=== PATIENT | female | born 2000 | race Caucasian/White ===

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

== ENCOUNTER 2018-04-14 06:35 | Emergency (ER) | payer SELFPAY ==
[~2018-04-14] VITALS: Ht 162.6 cm; Wt 59.0 kg
[2018-04-14 07:04] VITALS: BP 100/45
[2018-04-14] MEDS ORDERED: HYDROcodone/APAP 5/325MG 1 TAB TABLET ONE (07:08)
[2018-04-14] MEDS ORDERED: HYDROcodone/APAP 5/325MG 1 TAB TABLET PO ONE (07:15)
[2018-04-14] MEDS ORDERED: AMOXICILLIN/K CLAV 875/125MG TABLET. PO ONE (07:15)
[2018-04-14] MEDS ORDERED: MORPHINE SULFATE 2 MG/ML DISP.SYRIN. ONE (07:24)
[2018-04-14] MEDS ORDERED: HYDR-3165 PO (07:27)
[2018-04-14] MEDS ORDERED: AMOX1TAB61 PO (07:27)
--- NOTE | 2018-04-14 07:27 | PHYS DOC ---
Past History Past Medical History: Anxiety Past Surgical History: No Surgical History Smoking: Cigarettes Alcohol Use: Occasionally Drug Use: None Adult General Chief Complaint Chief Complaint: EARACHE/EAR PAIN HPI HPI 18-year-old female presents with bilateral ear pain. The patient started having severe pain about 3 hours prior to arrival. The patient was standing outside for a couple hours in the extreme cold earlier this morning. The pain is a sharp pressure and she has not had pain like this before. The pain as an 8 out of 10 and the patient is crying. She has no history of ear infections as an adult. She had no significant history of ear infections as a child. She denies trauma to the ears. She has a mild sore throat. She denies fever or chills. She has no other complaints. Review of Systems Review of Systems Constitutional: Denies fever or chills [] Eyes: Denies change in visual acuity, redness, or eye pain [] HENT: Ear pain, sore throat[] Respiratory: Denies cough or shortness of breath [] Cardiovascular: No additional information not addressed in HPI [] GI: Denies abdominal pain, nausea, vomiting, bloody stools or diarrhea [] : Denies dysuria or hematuria [] Musculoskeletal: Denies back pain or joint pain [] Integument: Denies rash or skin lesions [] Neurologic: Denies headache, focal weakness or sensory changes [] Endocrine: Denies polyuria or polydipsia [] All other systems were reviewed and found to be within normal limits, except as documented in this note. Current Medications Current Medications Current Medications Medications (Trade) Dose Ordered Sig/[facility] Start Time Stop Time Status Last Admin Dose Admin Acetaminophen/ Hydrocodone Bitart (Lortab 5/325) 1 tab STK-MED ONCE 04/14/18 07:08 04/14/18 07:10 DC Amoxicillin/ Clavulanate Potassium (Augmentin 875/ 125mg) 1 tab 1X ONCE 04/14/18 07:15 04/14/18 07:16 DC 04/14/18 07:12 1 TAB Allergies Allergies Allergies Coded Allergies Type Severity Reaction Last Updated Verified No Known Drug Allergies 10/14/14 No Physical Exam Physical Exam Constitutional: Well developed, well nourished, no acute distress, non-toxic appearance. [] HENT: Normocephalic, atraumatic, oropharynx moist, no oral exudates, nose normal. Right tympanic membrane occluded with wax. Left tympanic membrane is erythematous and bulging. [] Eyes: PERRLA, EOMI, conjunctiva normal, no discharge. [] Neck: Normal range of motion, no tenderness, supple, no stridor. [] Cardiovascular:Heart rate regular rhythm, no murmur [] Lungs & Thorax: Bilateral breath sounds clear to auscultation [] Abdomen: Bowel sounds normal, soft, no tenderness, no masses, no pulsatile masses. [] Skin: Warm, dry, no erythema, no rash. [] Back: No tenderness, no CVA tenderness. [] Extremities: No tenderness, no cyanosis, no clubbing, ROM intact, no edema. [] Neurologic: Alert and oriented X 3, normal motor function, normal sensory function, no focal deficits noted. [] Psychologic: Affect normal, judgement normal, mood normal. [] Current Patient Data Vital Signs Vital Signs Date Time Temp Pulse Resp B/P (MAP) Pulse Ox O2 Delivery O2 Flow Rate FiO2 04/14/18 07:04 97.9 103 20 100 Room Air EKG EKG [] Radiology/Procedures Radiology/Procedures [] Course & Med Decision Making Course & Med Decision Making Pertinent Labs and Imaging studies reviewed. (See chart for details) The patient is having a lot of pain from this ear infection. I have reviewed the prescription database and she only has one entry in the last year. She does appear to be legitimately in pain. I have treated her with [place] 5/325 as well as 2 mg of morphine IM. We have given her first dose of Augmentin in the ED. I will discharge her with a prescription for 10 days and a short course of Conover for home. I have advised that she follow up with ENT after her acute infection for earwax removal since this wax is dried and fairly deep in the canal. [] Dragon Disclaimer Dragon Disclaimer This electronic medical record was generated, in whole or in part, using a voice recognition dictation system. Departure Departure: Impression: Primary Impression: Left otitis media with effusion Disposition: HOME, SELF-CARE Condition: STABLE Referrals: KYLIE WING DO (PCP) Patient Instructions: Otitis Media, Adult, [id number] Scripts Amoxicillin/Potassium Clav (AUGMENTIN 875-125 TABLET) 1 Each Tablet 1 TAB PO BID for infection, #20 TAB Prov: KAYLYNN SADLER DO 04/14/18 Hydrocodone Bit/Acetaminophen (NORCO 5-325 TABLET) 1 Each Tablet 1 TAB PO PRN Q6HRS PRN for PAIN, #10 TAB 0 Refills Prov: KAYLYNN SADLER DO 04/14/18 KAYLYNN SADLER DO Apr 14, 2018 07:27
[2018-04-14] MEDS ORDERED: MORPHINE SULFATE 2 MG/ML DISP.SYRIN. IM ONE (07:30)
== END 2018-04-14 07:30 | disposition home or self-care (01) ==
LOC: ER 06:35
DX: H65.92 Unspecified nonsuppurative otitis media, left ear (principal); F41.9 Anxiety disorder, unspecified; F17.210 Nicotine dependence, cigarettes, uncomplicated
CPT/HCPCS: 96372; 99283; J2270

== ENCOUNTER 2018-07-02 10:49 | Emergency (ER) | payer SELFPAY ==
[~2018-07-02] VITALS: Ht 162.6 cm; Wt 54.4 kg
[~2018-07-02 10:49] MED LIST changes: +AMOX1TAB61 PO; +HYDR-3165 PO
[2018-07-02 11:00] VITALS: BP 103/47
[2018-07-02] MEDS ORDERED: IPRATRPIUM/ALBUTEROL 0.5/2.5MG 3 ML NEBU. NEB ONE (11:15)
[2018-07-02] MEDS ORDERED: predniSONE 10 MG TABLET PO ONE (11:30)
[2018-07-02] MEDS ORDERED: predniSONE 20 MG TABLET PO ONE (11:30)
--- NOTE | 2018-07-02 11:37 | PHYS DOC ---
Past History Past Medical History: Anxiety, Asthma Past Surgical History: No Surgical History Smoking: Cigarettes Alcohol Use: Occasionally Drug Use: None Adult General Chief Complaint Chief Complaint: SHORTNESS OF BREATH HPI HPI Patient is a 18 year old female who presents with complaint of wheezing and shortness of breath. Patient states her symptoms started 2 days ago. Patient states she has history of asthma. Notes that she smoked cigarettes a few days ago and believes this may have triggered her asthma. Denies any known fevers. States that her cough has been reductive of clear sputum. States that she took albuterol today with no relief in symptoms. Notes that she had a previous flare proximate 1 month ago and was placed on a short course of steroids and antibiotics. Denies chest pain or abdominal pain currently. Review of Systems Review of Systems Constitutional: Denies fever or chills [] Eyes: Denies change in visual acuity, redness, or eye pain [] HENT: Denies nasal congestion or sore throat [] Respiratory: Cough, wheezing, shortness of breath[] Cardiovascular: No additional information not addressed in HPI [] GI: Denies abdominal pain, nausea, vomiting, bloody stools or diarrhea [] : Denies dysuria or hematuria [] Musculoskeletal: Denies back pain or joint pain [] Integument: Denies rash or skin lesions [] Neurologic: Denies headache, focal weakness or sensory changes [] All other systems were reviewed and found to be within normal limits, except as documented in this note. Current Medications Current Medications Current Medications Medications (Trade) Dose Ordered Sig/Eliel Start Time Stop Time Status Last Admin Dose Admin Albuterol/ Ipratropium (Duoneb) 3 ml 1X ONCE 07/02/18 11:15 07/02/18 11:16 DC Prednisone (Prednisone) 40 mg 1X ONCE 07/02/18 11:30 07/02/18 11:31 DC 07/02/18 11:31 40 MG Allergies Allergies Allergies Coded Allergies Type Severity Reaction Last Updated Verified No Known Drug Allergies 10/14/14 No Physical Exam Physical Exam Constitutional: Alert, afebrile, no acute distress. [] HENT: Normocephalic, atraumatic, bilateral external ears normal, oropharynx moist, no oral exudates, nose normal. [] Eyes: PERRLA, EOMI, conjunctiva normal, no discharge. [] Neck: Normal range of motion, no tenderness, supple, no stridor. [] Cardiovascular:Heart rate regular rhythm, no murmur [] Lungs & Thorax: Mild wheezing bilaterally, good air movement bilaterally, no rales[] Abdomen: Bowel sounds normal, soft, no tenderness, no masses, no pulsatile masses. [] Skin: Warm, dry, no erythema, no rash. [] Back: No tenderness, no CVA tenderness. [] Extremities: No tenderness, no cyanosis, no clubbing, ROM intact, no edema. [] Neurologic: Alert and oriented X 3, normal motor function, normal sensory function, no focal deficits noted. [] Current Patient Data Vital Signs Vital Signs Date Time Temp Pulse Resp B/P (MAP) Pulse Ox O2 Delivery O2 Flow Rate FiO2 07/02/18 11:00 97.9 74 16 97 Room Air Lab Results Not performed EKG EKG Not performed[] Radiology/Procedures Radiology/Procedures [address] [address] IMAGING REPORT Signed PATIENT: TOMMY STOLL ACCOUNT: [id number] : 2000 LOCATION: ER AGE: 18 SEX: F EXAM STATUS: DEP ER ORD. PHYSICIAN: TARUN HERNANDEZ MD REASON: shortness of breath, cough PROCEDURE: CHEST PA & LATERAL EXAM: Chest, 2 views. HISTORY: Asthma. COMPARISON: 11/13/2017 FINDINGS: 2 views of the chest are obtained. There is no infiltrate, pleural effusion or pneumothorax. The heart is normal in size. IMPRESSION: No acute pulmonary finding. Electronically signed by: May Quintero MD (07/02/2018 12:06 PM) [place] [id number] DICTATED AND SIGNED BY: MAY QUINTERO MD DATE: 07/02/18 1206 CC: KYLIE WING DO; TARUN HERNANDEZ MD ~ [] Course & Med Decision Making Course & Med Decision Making Pertinent Labs and Imaging studies reviewed. (See chart for details) Patient was treated with 1 DuoNeb nebulized treatment and given 50 mg of prednisone in the emergency department. Chest x-ray shows no evidence of pneumonia. Patient reports significant improvement in symptoms. The patient will be placed on prednisone taper and advised to continue with albuterol treatment at home. Recommended follow-up in one week with primary doctor for reevaluation and return to emergency department for any worsening symptoms. Patient was understanding and in agreement with treatment plan.[] Dragon Disclaimer Dragon Disclaimer This electronic medical record was generated, in whole or in part, using a voice recognition dictation system. Departure Departure: Impression: Primary Impression: Asthma exacerbation Disposition: HOME, SELF-CARE Condition: IMPROVED Referrals: KYLIE WING DO (PCP) Patient Instructions: Asthma, Adult Additional Instructions: Follow-up with your primary doctor in 1 week for reevaluation. Return to the emergency department for any worsening symptoms. Scripts Prednisone (PREDNISONE) 10 Mg Tablet 10 MG PO UD for PREDNISONE TAPER, #39 TAB 0 Refills Take 3 tablets by mouth twice a day for 3 days, then take 2 tablets by mouth twice a day for 3 days, then take 1 tablet by mouth twice a day for 3 days, then take 1 tablet by mouth daily x 3 days, then stop. Prov: TARUN HERNANDEZ MD 07/02/18 Problem Qualifiers Primary Impression: Asthma exacerbation Asthma severity: mild Asthma persistence: persistent Qualified Codes: J45.31 - Mild persistent asthma with (acute) exacerbation TARUN HERNANDEZ MD Jul 02, 2018 11:37
[2018-07-02] MEDS ORDERED: PRED-220 PO (11:55)
--- NOTE | 2018-07-02 12:09 | RAD ---
EXAM: Chest, 2 views. HISTORY: Asthma. COMPARISON: 11/13/2017 FINDINGS: 2 views of the chest are obtained. There is no infiltrate, pleural effusion or pneumothorax. The heart is normal in size. IMPRESSION: No acute pulmonary finding. Electronically signed by: May Rosenthal MD (07/02/2018 12:06 PM) [facility]
== END 2018-07-02 12:02 | disposition home or self-care (01) ==
LOC: ER 10:49
DX: J45.31 Mild persistent asthma with (acute) exacerbation (principal); F41.9 Anxiety disorder, unspecified; F17.210 Nicotine dependence, cigarettes, uncomplicated
CPT/HCPCS: 71046; 94640; 99283; J7512; J7620

== ENCOUNTER 2018-09-16 12:16 | Emergency (ER) | payer MEDICAID, OTHER ==
[~2018-09-16 12:16] MED LIST changes: +PRED-220 PO
[2018-09-16 12:39] VITALS: BP 113/79
[2018-09-16] MEDS ORDERED: CARB15DR23 OT (13:01)
--- NOTE | 2018-09-16 13:02 | PHYS DOC ---
Past History Past Medical History: No Pertinent History Past Surgical History: No Surgical History Smoking: Cigarettes Alcohol Use: Occasionally Drug Use: None Adult General Chief Complaint Chief Complaint: EARACHE/EAR PAIN HPI HPI Patient is a 18 year old female who presents with complaint of bilateral ear p ain. The patient states that she is having trouble hearing out of her ears and states that they feel occluded. States that she tried using Q-tips to clean her ears out states that she tried to go in deeply with the Q-tips to help clean her ears out but states that this ended up causing her more pain and discomfort. Denies any congestion, fever, or sore throat. States that she has had this problem before and had to have her ears "cleaned out." Review of Systems Review of Systems Constitutional: Denies fever or chills [] Eyes: Denies change in visual acuity, redness, or eye pain [] HENT: Denies nasal congestion or sore throat [] Musculoskeletal: Denies back pain or joint pain [] Integument: Denies rash or skin lesions [] Neurologic: Denies headache, focal weakness or sensory changes [] All other systems were reviewed and found to be within normal limits, except as documented in this note. Allergies Allergies Allergies Coded Allergies Type Severity Reaction Last Updated Verified No Known Drug Allergies 10/14/14 No Physical Exam Physical Exam Constitutional: Well developed, well nourished, no acute distress, non-toxic appearance. [] HENT: Normocephalic, atraumatic, bilateral external ears normal, bilateral ear canals occluded by deeply impacted cerumen, oropharynx moist, no oral exudates, nose normal. [] Eyes: PERRLA, EOMI, conjunctiva normal, no discharge. [] Skin: Warm, dry, no erythema, no rash. [] Extremities: No tenderness, no cyanosis, no clubbing, ROM intact, no edema. [] Neurologic: Alert and oriented X 3, normal motor function, normal sensory function, no focal deficits noted. [] Current Patient Data Vital Signs Vital Signs Date Time Temp Pulse Resp B/P (MAP) Pulse Ox O2 Delivery O2 Flow Rate FiO2 09/16/18 12:39 97.7 79 18 98 Room Air Lab Results Not performed EKG EKG Not performed[] Radiology/Procedures Radiology/Procedures Not performed[] Course & Med Decision Making Course & Med Decision Making Pertinent Labs and Imaging studies reviewed. (See chart for details) Patient has deeply impacted cerumen in bilateral ear canals likely leading the patient's current symptoms. At this time the serum and does not appear amenable to immediate treatment with curette or irrigation. The patient will need to treat both ears with a sermon softening agent such as Debrox. Recommended outpatient treatment with this medication and follow-up with primary care. Patient also referred to Dr. Tejal Monroe, ENT, if symptoms are not improving. Advised return to emergency department for any worsening symptoms. Patient was understanding and in agreement with treatment plan.[] Dragon Disclaimer Dragon Disclaimer This electronic medical record was generated, in whole or in part, using a voice recognition dictation system. Departure Departure: Impression: Primary Impression: Impacted cerumen of both ears Disposition: 01 HOME, SELF-CARE Condition: STABLE Referrals: Sarahi Monroe M.D. PCP,NO (PCP) Patient Instructions: Cerumen Impaction Additional Instructions: Use Debrox solution to both ears to help soften up your impacted cerumen. You may follow this with gentle irrigation with lukewarm water to try to help remove the earwax from your ears. Follow-up with primary care in 1 week if symptoms are not improving. You may also follow-up with Dr. Monroe, ENT, for further evaluation and treatment. Return to emergency department for any worsening symptoms. Scripts Carbamide Peroxide (EAR WAX REMOVAL) 15 Ml Drops 15 ML OT UD, #1 BOTTLE Prov: TARUN HERNANDEZ MD 09/16/18 TARUN HERNANDEZ MD Sep 16, 2018 13:02
== END 2018-09-16 13:09 | disposition home or self-care (01) ==
LOC: ER 12:16
DX: H61.23 Impacted cerumen, bilateral (principal); F17.210 Nicotine dependence, cigarettes, uncomplicated
CPT/HCPCS: 99282

== ENCOUNTER 2018-10-15 08:37 | Emergency (ER) | payer OTHER ==
[~2018-10-15] VITALS: Ht 165.1 cm; Wt 58.7 kg
[~2018-10-15 08:37] MED LIST changes: +CARB15DR23 OT
[2018-10-15 08:47] VITALS: BP 111/81
[2018-10-15] MEDS ORDERED: AZIT250T PO (09:10)
[2018-10-15] MEDS ORDERED: ALBU2.5V8 IH (09:10)
[2018-10-15] MEDS ORDERED: PRED50TA PO (09:10)
--- NOTE | 2018-10-15 09:10 | PHYS DOC ---
Past History Past Medical History: Asthma Past Surgical History: No Surgical History Smoking: Cigarettes, Less than 1pk/day Alcohol Use: Occasionally Drug Use: None Adult General Chief Complaint Chief Complaint: SHORTNESS OF BREATH HPI HPI Patient is a 18 year old female presents with cough and shortness of breath for the past 4 days. It became worse since yesterday after she smoked several cigarettes due to being stressed out. She reports that she is not normally a smoker. She has been taking her home inhaler with increasing frequency. No fever. No sputum production. The inhaler does make her symptoms better. Symptoms are currently mild in intensity. No recent oral steroids. She did not use her home nebulizer.[] Review of Systems Review of Systems Constitutional: Denies fever or chills [] Eyes: Denies change in visual acuity, redness, or eye pain [] HENT: Denies nasal congestion or sore throat [] Respiratory: See history of present illness[] Cardiovascular: No chest pain or pressure or palpitations[] GI: Denies abdominal pain, nausea, vomiting, bloody stools or diarrhea [] : Denies dysuria or hematuria [] Musculoskeletal: Denies back pain or joint pain [] Integument: Denies rash or skin lesions [] Neurologic: Denies headache, focal weakness or sensory changes [] Endocrine: Denies polyuria or polydipsia [] All other systems were reviewed and found to be within normal limits, except as documented in this note. Allergies Allergies Allergies Coded Allergies Type Severity Reaction Last Updated Verified No Known Drug Allergies 10/14/14 No Physical Exam Physical Exam Constitutional: Well developed, well nourished, no acute distress, non-toxic appearance. [] HENT: Normocephalic, atraumatic, bilateral external ears normal, oropharynx moist, no oral exudates, nose normal. [] Eyes: PERRLA, EOMI, conjunctiva normal, no discharge. [] Neck: Normal range of motion, no tenderness, supple, no stridor. [] Cardiovascular:Heart rate regular rhythm, no murmur [] Lungs & Thorax: Bilateral breath sounds clear to auscultation [] Abdomen: Bowel sounds normal, soft, no tenderness, no masses, no pulsatile masses. [] Skin: Warm, dry, no erythema, no rash. [] Back: No tenderness, no CVA tenderness. [] Extremities: No tenderness, no cyanosis, no clubbing, ROM intact, no edema. [] Neurologic: Alert and oriented X 3, normal motor function, normal sensory function, no focal deficits noted. [] Psychologic: Affect normal, judgement normal, mood normal. [] Current Patient Data Vital Signs Vital Signs Date Time Temp Pulse Resp B/P (MAP) Pulse Ox O2 Delivery O2 Flow Rate FiO2 10/15/18 08:47 97.6 71 24 99 Room Air EKG EKG [] Radiology/Procedures Radiology/Procedures [] Course & Med Decision Making Course & Med Decision Making Pertinent Labs and Imaging studies reviewed. (See chart for details) Medical decision making: This appears to be an asthma exacerbation triggered by combination of changing temperatures from very hot to more comfortable and temp red along with cigarette use. Will place patient on short course of steroids. She reports she has a spacer at home for use with her metered-dose inhaler. Encouraged her to use this. Prescribing "just in case" antibiotics but only to use in 2 days if she is not improving with the steroid therapy. Close follow-up instructions were given. Patient voiced understanding. All questions were answered. She was discharged in improved condition.[] Dragon Disclaimer Dragon Disclaimer This electronic medical record was generated, in whole or in part, using a voice recognition dictation system. Departure Departure: Impression: Primary Impression: Asthma exacerbation Disposition: 01 HOME, SELF-CARE Condition: IMPROVED Referrals: PCP,NO (PCP) Patient Instructions: Asthma Attacks, Prevention, Asthma, Adult Additional Instructions: No smoking! Follow-up with your regular doctor in 2 days. Drink plenty of fluids. Return to the ER if worsening difficulty breathing or any other concerns. The azithromycin is written in case you are not improving within 2 days. Do not fill it if you're doing better. If no improvement in 2 days, fill and take as directed. Scripts Azithromycin (ZITHROMAX) 250 Mg Tablet 1 PKG PO UD for shortness of breath, #1 PKG Prov: BRAYAN JACOBS DO 10/15/18 Prednisone (PREDNISONE) 50 Mg Tablet 1 TAB PO DAILY for INFLAMMATION, #5 TAB Prov: BRAYAN JACOBS DO 10/15/18 Albuterol Sulfate (VENTOLIN HFA INHALER) 18 Gm Hfa.aer.ad 2 PUFF IH PRN Q4HRS PRN for FOR ASTHMA, #1 INHALER 0 Refills Prov: BRAYAN JACOBS DO 10/15/18 Problem Qualifiers Primary Impression: Asthma exacerbation Asthma severity: mild Asthma persistence: intermittent Qualified Codes: J45.21 - Mild intermittent asthma with (acute) exacerbation BRAYAN JACOBS DO Oct 15, 2018 09:10
== END 2018-10-15 09:12 | disposition home or self-care (01) ==
LOC: ER 08:37
DX: J45.21 Mild intermittent asthma with (acute) exacerbation (principal); F17.210 Nicotine dependence, cigarettes, uncomplicated
CPT/HCPCS: 99283

== ENCOUNTER 2018-11-14 16:10 | Emergency (ER) | payer MEDICAID, OTHER ==
[~2018-11-14] VITALS: Ht 165.1 cm; Wt 58.7 kg
[2018-11-14 16:10] VITALS: BP 125/59
[~2018-11-14 16:10] MED LIST changes: +ALBU2.5V8 IH; +AZIT250T PO
[2018-11-14] MEDS ORDERED: IPRATRPIUM/ALBUTEROL 0.5/2.5MG 3 ML NEBU. NEB ONE (16:30)
[2018-11-14] MEDS ORDERED: ALBU2.5V8 IH (16:53)
[2018-11-14] MEDS ORDERED: PRED50TA PO (16:53)
--- NOTE | 2018-11-14 16:55 | PHYS DOC ---
Past History Past Medical History: Asthma Past Surgical History: No Surgical History Smoking: Cigarettes, Less than 1pk/day Alcohol Use: Occasionally Drug Use: None Adult General Chief Complaint Chief Complaint: SHORTNESS OF BREATH HPI HPI Patient is a 18-year-old female presents with shortness of breath for the past several days since running out of her "brown inhaler." She has a history of asthma, has no primary care physician, and smokes approximately 5 cigarettes a day. She denies any fever. She denies any productive cough. She denies any chest pain or palpitations. Nothing seems to make the symptoms better or worse. Symptoms are mild to moderate in intensity.[] Review of Systems Review of Systems Constitutional: Denies fever or chills [] Eyes: Denies change in visual acuity, redness, or eye pain [] HENT: Denies nasal congestion or sore throat [] Respiratory: See history of present illness[] Cardiovascular: No chest pain or palpitations[] GI: Denies abdominal pain, nausea, vomiting, bloody stools or diarrhea [] : Denies dysuria or hematuria [] Musculoskeletal: Denies back pain or joint pain [] Integument: Denies rash or skin lesions [] Neurologic: Denies headache, focal weakness or sensory changes [] Endocrine: Denies polyuria or polydipsia [] All other systems were reviewed and found to be within normal limits, except as documented in this note. Current Medications Current Medications Current Medications Medications (Trade) Dose Ordered Sig/Eliel Start Time Stop Time Status Last Admin Dose Admin Albuterol/ Ipratropium (Duoneb) 3 ml 1X ONCE 11/14/18 16:30 11/14/18 16:34 DC Allergies Allergies Allergies Coded Allergies Type Severity Reaction Last Updated Verified No Known Drug Allergies 10/14/14 No Physical Exam Physical Exam Constitutional: Well developed, well nourished, no acute distress, non-toxic appearance. [] HENT: Normocephalic, atraumatic, bilateral external ears normal, oropharynx moist, no oral exudates, nose normal. [] Eyes: PERRLA, EOMI, conjunctiva normal, no discharge. [] Neck: Normal range of motion, no tenderness, supple, no stridor. [] Cardiovascular:Heart rate regular rhythm, no murmur [] Lungs & Thorax: Inspiratory next 20 wheezes throughout. No increased work of breathing.[] Abdomen: Bowel sounds normal, soft, no tenderness, no masses, no pulsatile masses. [] Skin: Warm, dry, no erythema, no rash. [] Back: No tenderness, no CVA tenderness. [] Extremities: No tenderness, no cyanosis, no clubbing, ROM intact, no edema. [] Neurologic: Alert and oriented X 3, normal motor function, normal sensory function, no focal deficits noted. [] Psychologic: Affect normal, judgement normal, mood normal. [] Current Patient Data Vital Signs Vital Signs Date Time Temp Pulse Resp B/P (MAP) Pulse Ox O2 Delivery O2 Flow Rate FiO2 11/14/18 16:10 98.7 79 22 125/59 (81) 97 Room Air EKG EKG [] Radiology/Procedures Radiology/Procedures [] Course & Med Decision Making Course & Med Decision Making Pertinent Labs and Imaging studies reviewed. (See chart for details) ED course: Patient arrived, was placed in bed, and tolerated exam well. She was given a breathing treatment which significantly improved her breath sounds as well as her subjective shortness of breath. Action saturation remained normal. She was able to ambulate about the emergency department without any increased difficulty breathing. She was discharged in improved condition with all questions answered. Medical decision makin-year-old female with a history of asthma who also smokes. There is no evidence of status asthmaticus, patient was counseled for 3- 5 minutes about smoking cessation. No evidence of an acute coronary syndrome, pulmonary embolism, CHF, nor acute coronary syndrome.[] Dragon Disclaimer Dragon Disclaimer This electronic medical record was generated, in whole or in part, using a voice recognition dictation system. Departure Departure: Impression: Primary Impression: Asthma exacerbation Additional Impression: Tobacco abuse Disposition: HOME, SELF-CARE Condition: IMPROVED Referrals: PCP,NO (PCP) Patient Instructions: Asthma Attacks, Prevention, Asthma, Adult, Smoking Cessation Additional Instructions: Follow-up with your regular doctor in 2 days. If you do not have a regular doctor list of local clinics will be provided for you. Stop smoking! Return to the ER if worsening difficulty breathing or any other concerns. Scripts Prednisone (PREDNISONE) 50 Mg Tablet 1 TAB PO DAILY for INFLAMMATION, #5 TAB Prov: BRAYAN JACOBS DO 11/14/18 Albuterol Sulfate (VENTOLIN HFA INHALER) 18 Gm Hfa.aer.ad 2 PUFF IH PRN Q4HRS PRN for FOR ASTHMA, #1 INHALER 0 Refills Prov: BRAYAN JACOBS DO 11/14/18 Problem Qualifiers Primary Impression: Asthma exacerbation Asthma severity: mild Asthma persistence: intermittent Qualified Codes: J45.21 - Mild intermittent asthma with (acute) exacerbation BRAYAN JACOBS DO Nov 14, 2018 16:55
== END 2018-11-14 17:09 | disposition home or self-care (01) ==
LOC: ER 16:12
DX: J45.21 Mild intermittent asthma with (acute) exacerbation (principal); F17.210 Nicotine dependence, cigarettes, uncomplicated
CPT/HCPCS: 94640; 99283; J7620

== ENCOUNTER 2019-03-06 01:15 | Emergency (ER) | payer MEDICAID ==
[~2019-03-06] VITALS: Ht 160 cm; Wt 49.9 kg
[~2019-03-06 01:15] MED LIST changes: +CARB-174 OT; -CARB15DR23 OT
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
[2019-03-06] MEDS ORDERED: IV NORMAL SALINE 1,000ML 1,000 ML IV ONE (02:00)
--- NOTE | 2019-03-06 02:00 | EKG ---
[address] [address] Test Date: 2019-03-06 Test Time: 01:29:00 Pat Name: TOMMY STOLL Department: Room: Gender: F Delivery Manager: : 2000 Requested By: VARGHESE MANZANO Order Number: [id number] Reading MD: Measurements Intervals [place] Rate: 127 P: 22 TN: 124 QRS: 25 QRSD: 76 T: 49 QT: 294 QTc: 432 Interpretive Statements SINUS TACHYCARDIA LEFT ATRIAL ABNORMALITY INCOMPLETE RIGHT BUNDLE BRANCH BLOCK QRS(T) CONTOUR ABNORMALITY CONSIDER ANTEROLATERAL MYOCARDIAL DAMAGE ABNORMAL ECG RI6.01 No previous ECG available for comparison
[2019-03-06 02:19] LABS: BARBITURATES NEG (NEG); BENZODIAZEPINES NEG (NEG); CANNABINOIDS POS (NEG); COCAINE NEG (NEG); METHADONE NEG (NEG); OPIATES NEG (NEG); PHENCYCLIDINE NEG (NEG)
[2019-03-06 02:27] LABS: BILIRUBIN,URINE NEG (NEG); CLARITY,URINE CLEAR; COLOR,URINE YELLOW; GLUCOSE,URINE NEG (NEG); NITRITE,URINE NEG (NEG); RBC,URINE 0 /HPF (0-2); UROBILINOGEN,URINE 0.2 mg/dL (0.2 mg/dL); WBC,URINE OCC /HPF (0-4)
[2019-03-06 02:28] LABS: BACTERIA,URINE 0 /HPF (0-FEW); SQUAMOUS EPITHELIAL CELL,UR MOD /LPF
[2019-03-06 02:30] VITALS: BP 112/71
[2019-03-06 02:30] LABS: AMPHETAMINE/METHAMPHETAMINE NEG (NEG)
== END 2019-03-06 02:55 | disposition left against medical advice (07) ==
LOC: ER 01:15
DX: F10.129 Alcohol abuse with intoxication, unspecified (principal); J45.909 Unspecified asthma, uncomplicated; F17.210 Nicotine dependence, cigarettes, uncomplicated; F15.10 Other stimulant abuse, uncomplicated; F12.10 Cannabis abuse, uncomplicated; Y90.0 Blood alcohol level of less than 20 mg/100 ml
CPT/HCPCS: 36415; 80307; 81001; 93005; 99285

== ENCOUNTER 2019-04-24 16:39 | Emergency (ER) | payer MEDICAID ==
[~2019-04-24] VITALS: Ht 160 cm; Wt 58.7 kg
--- NOTE | 2019-04-24 16:58 | PHYS DOC ---
Past History Past Medical History: Anxiety, Asthma, Bipolar, Bronchitis, Depression, Seizure Past Surgical History: No Surgical History Smoking: Cigarettes, Less than 1pk/day Alcohol Use: Heavy Drug Use: Amphetamine, Marijuana, Methamphetamine Adult General Chief Complaint Chief Complaint: COUGH HPI HPI Patient is a 19-year-old female with a history of asthma, as well as other medical problems, who presents to the emergency department for evaluation. She states that she has had an ongoing cough for the past month, nonproductive. She reports some shortness of breath. She has not had any fevers, headache, chest pain, nausea, or vomiting. She states that she received a dose of prednisone f rom a family member about 3 days ago, but has not had a prescription recently. She did take a breathing treatment at home earlier today. There are no alleviating or exacerbating factors to her symptoms. Unfortunately, she is a smoker. Review of Systems Review of Systems Constitutional: Denies fever or chills [] Eyes: Denies change in visual acuity, redness, or eye pain [] HENT: Denies nasal congestion or sore throat [] Respiratory: No additional information not addressed in HPI [] Cardiovascular: No additional information not addressed in HPI [] GI: Denies abdominal pain, nausea, vomiting, bloody stools or diarrhea [] : Denies dysuria or hematuria. She is uncertain if she is , she is about a week late on her period [] Musculoskeletal: Denies back pain or joint pain [] Integument: Denies rash or skin lesions [] Neurologic: Denies headache, focal weakness or sensory changes [] Endocrine: Denies polyuria or polydipsia [] All other systems were reviewed and found to be within normal limits, except as documented in this note. Current Medications Current Medications Current Medications Medications (Trade) Dose Ordered Sig/Eliel Start Time Stop Time Status Last Admin Dose Admin Albuterol/ Ipratropium (Duoneb) 3 ml 1X ONCE 04/24/19 17:00 04/24/19 17:01 UNV Allergies Allergies Allergies Coded Allergies Type Severity Reaction Last Updated Verified No Known Drug Allergies 10/14/14 No Physical Exam Physical Exam PHYSICAL EXAM: CONSTITUTIONAL: Well developed, well nourished HEAD: normocephalic, atraumatic EENT: PERRL, EOMI. Conjunctivae normal color, sclerae non-icteric; moist mucous membranes. NECK: Supple, non-tender; no meningismus. LUNGS: There are mild scattered expiratory wheezes, breathing even and unlabored. Normal air movement. Patient speaking in full sentences. HEART: Regular rate and rhythm, no murmur CHEST: No deformity; non-tender ABDOMEN: The abdomen is soft, and non-tender, no masses or bruits. EXTREM: Normal ROM; no deformity, no calf tenderness. Normal pulses palpable in all extremities. There is no pedal edema. SKIN: No rash; no diaphoresis NEURO: Alert; normal speech and cognition; CN's grossly intact; strength grossly intact without focal deficit. BACK: No CVA TTP. EKG EKG [] Radiology/Procedures Radiology/Procedures PROCEDURE: CHEST PA & LATERAL CHEST PA LATERAL History: Cough Comparison: July 02, 2018 Findings: No consolidation or pleural effusion. Normal heart size. No pneumothorax. Impression: 1. No acute cardiopulmonary process.[] Course & Med Decision Making Course & Med Decision Making Pertinent Labs and Imaging studies reviewed. (See chart for details) []HCG negative. Patient remains stable. I discussed test results, the need for close follow-up, and return precautions. Dragon Disclaimer Dragon Disclaimer This electronic medical record was generated, in whole or in part, using a voice recognition dictation system. Departure Departure: Impression: Primary Impression: Asthma exacerbation Disposition: HOME, SELF-CARE Condition: STABLE Patient Instructions: Asthma, Adult, Smoking Cessation Scripts Albuterol Sulfate (PROAIR HFA INHALER) 8.5 Gm Hfa.aer.ad 2 PUFF INH PRN Q6HRS PRN for SHORTNESS OF BREATH, #1 INHALER 0 Refills Prov: VARGHESE MANZANO MD 04/24/19 Prednisone (PREDNISONE) 20 Mg Tablet 40 MG PO DAILY for - for 5 Days, #10 TAB Prov: VARGHESE MANZANO MD 04/24/19 VARGHESE MANZANO MD Apr 24, 2019 16:58
[2019-04-24] MEDS ORDERED: IPRATRPIUM/ALBUTEROL 0.5/2.5MG 3 ML NEBU. NEB ONE (17:00)
[2019-04-24 17:10] VITALS: BP 108/56
--- NOTE | 2019-04-24 17:38 | RAD ---
CHEST PA LATERAL History: Cough Comparison: July 02, 2018 Findings: No consolidation or pleural effusion. Normal heart size. No pneumothorax. Impression: 1. No acute cardiopulmonary process. Electronically signed by: Jonathon Burns DO (04/24/2019 5:35 PM) [id number]
[2019-04-24] MEDS ORDERED: PRED20TA PO (17:48)
[2019-04-24] MEDS ORDERED: ALBU2.5V8 INH (17:48)
== END 2019-04-24 17:54 | disposition home or self-care (01) ==
LOC: ER 16:39
DX: J45.901 Unspecified asthma with (acute) exacerbation (principal); F41.9 Anxiety disorder, unspecified; F32.9 Major depressive disorder, single episode, unspecified; F17.210 Nicotine dependence, cigarettes, uncomplicated; F15.10 Other stimulant abuse, uncomplicated; F12.10 Cannabis abuse, uncomplicated
CPT/HCPCS: 71046; 81025; 94640; 99284; J7620

== ENCOUNTER 2020-01-18 12:36 | Emergency (ER) | payer MEDICAID ==
[~2020-01-18] VITALS: Ht 162.6 cm; Wt 55.3 kg
[~2020-01-18 12:36] MED LIST changes: +ALBU2.5V8 INH; +PRED20TA PO
[2020-01-18 12:38] VITALS: BP 133/66
[2020-01-18] MEDS ORDERED: IPRATRPIUM/ALBUTEROL 0.5/2.5MG 3 ML NEBU. NEB ONE (13:15)
[2020-01-18] MEDS ORDERED: predniSONE 10 MG TABLET PO ONE (13:15)
[2020-01-18] MEDS ORDERED: ALBU8HFA2 IH (13:44)
[2020-01-18] MEDS ORDERED: PRED20TA PO (13:44)
[2020-01-18] MEDS ORDERED: ALBU2.5V14 NEB (13:44)
--- NOTE | 2020-01-18 13:45 | PHYS DOC ---
Past History Past Medical History: Anxiety, Asthma, Bipolar, Bronchitis, Depression, Seizure Past Surgical History: No Surgical History Smoking: Cigarettes, Less than 1pk/day Alcohol Use: Heavy Drug Use: Amphetamine, Marijuana, Methamphetamine Adult General Chief Complaint Chief Complaint: MULTIPLE COMPLAINTS [facility] HPI Patient is a 19-year-old female who presents for wheezing. Patient has known history of asthma, reports feelings of worsening asthma exacerbation times past 1 week. Nothing known makes better or worse. She has been using albuterol nebs at home without significant relief in symptoms. She denies any constitutional symptoms such as fever, chills or concerning COVID-19 symptoms such as URI-like symptoms. She suspects the change in weather triggered her recent exacerbation. She has never been intubated. Of note, patient does admit to finding out she was x1 week ago after taking x4 urine tests at home. 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 See HPI for pertinent positives and negative responses, other gil all other systems are negative, non-pertinent or non-contributory Current Medications Current Medications Current Medications Medications (Trade) Dose Ordered Sig/Eliel Start Time Stop Time Status Last Admin Dose Admin Albuterol/ Ipratropium (Duoneb) 3 ml 1X ONCE 01/18/20 13:15 01/18/20 13:16 DC 01/18/20 13:19 3 ML Prednisone (Prednisone) 50 mg 1X ONCE 01/18/20 13:15 01/18/20 13:16 DC 01/18/20 13:33 50 MG Allergies Allergies Allergies Coded Allergies Type Severity Reaction Last Updated Verified No Known Drug Allergies 10/14/14 No Physical Exam Physical Exam Constitutional: Well developed, well nourished, no acute distress, non-toxic appearance. HENT: Normocephalic, atraumatic, bilateral external ears normal, oropharynx moist, no oral exudates, nose normal. Eyes: PERRLA, EOMI, conjunctiva normal, no discharge. Neck: Normal range of motion, no tenderness, supple, no stridor. Cardiovascular: Heart rate regular, sinus rhythm, no murmurs rubs or gallops Lungs & Thorax: No respiratory distress, no accessory muscle use, diffuse end expiratory wheezes bilaterally Abdomen: Bowel sounds normal, soft, no tenderness, no masses, no pulsatile masses. Nonsurgical abdomen, no peritoneal signs Skin: Warm, dry, no erythema, no rash. Back: No tenderness, no CVA tenderness. Extremities: No tenderness, no cyanosis, no clubbing, ROM intact, no edema. Neurologic: Alert and oriented X 3, grossly normal motor & sensory function, no focal deficits noted. Psychologic: Affect normal, judgement normal, mood normal. Current Patient Data Vital Signs Vital Signs Date Time Temp Pulse Resp B/P (MAP) Pulse Ox O2 Delivery O2 Flow Rate FiO2 01/18/20 13:19 96 Room Air 01/18/20 12:38 98.6 96 20 133/66 (88) EKG EKG [] Radiology/Procedures Radiology/Procedures [] Heart Score HEART Score for Chest Pain: HEART Score for Chest Pain Response (Comments) Value History Slighlty/Non-Suspicious 0 ECG Normal 0 Age < 45 0 Risk Factors No Risk Factors 0 Total 0 Risk Factors: Risk Factors: DM, Current or recent (<one month) smoker, HTN, HLP, family history of CAD, obesity. Risk Scores: Risk Factors: DM, Current or recent (<one month) smoker, HTN, HLP, family history of CAD, obesity. Course & Med Decision Making Course & Med Decision Making Pertinent Labs and Imaging studies reviewed. (See chart for details) Discussed most likely diagnosis of asthma exacerbation Patient responded well to ER treatment of DuoNeb and steroids. I feel patient would benefit from updated albuterol prescription and short-term steroid burst Regarding patient's recent , given that she has no concerning signs or symptoms such as tearing abdomen pain, vaginal discharge or bleeding etc. no further work-up is indicated at this time. 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 Departure Departure: Impression: Primary Impression: Acute asthma exacerbation Additional Impression: and not yet delivered in first trimester Disposition: 01 DC HOME SELF CARE/HOMELESS Condition: STABLE Referrals: PCP,NO (PCP) Patient Instructions: Asthma Attacks, Prevention, Asthma Prevention-Brief Scripts Albuterol Sulfate (Ventolin Hfa) 8 Gm Hfa.aer.ad 1 GM IH Q4-6HRS PRN for SHORTNESS OF BREATH, #1 INHALER Prov: PARDEEP GILBERT DO 01/18/20 Albuterol Sulfate (ALBUTEROL SULFATE CONC NEB SOLN) 2.5 Mg/0.5 Ml Vial.neb 1 VIAL NEB Q4HRS for ASTHMA, #60 VIAL 1 Refill Prov: PARDEEP GILBERT DO 01/18/20 Prednisone (PREDNISONE) 20 Mg Tablet 40 MG PO DAILY for ASTHMA for 4 Days, #8 TAB Prov: PARDEEP GILBERT DO 01/18/20 Problem Qualifiers PARDEEP GILBERT DO Jan 18, 2020 13:45
== END 2020-01-18 14:07 | disposition home or self-care (01) ==
LOC: ER 12:36
DX: J45.901 Unspecified asthma with (acute) exacerbation (principal); F41.9 Anxiety disorder, unspecified; F32.9 Major depressive disorder, single episode, unspecified; F17.210 Nicotine dependence, cigarettes, uncomplicated; F12.90 Cannabis use, unspecified, uncomplicated; F19.90 Other psychoactive substance use, unspecified, uncomplicated; F10.10 Alcohol abuse, uncomplicated
CPT/HCPCS: 94640; 99283; J7512

== ENCOUNTER 2020-02-11 20:07 | Emergency (ER) | payer MEDICAID ==
[~2020-02-11] VITALS: Ht 162.6 cm; Wt 55.3 kg
[~2020-02-11 20:07] MED LIST changes: +ALBU2.5V14 NEB; +ALBU8HFA2 IH
[2020-02-11] MEDS ORDERED: IV NORMAL SALINE 1,000ML 1,000 ML IV ONE (20:15)
[2020-02-11 20:50] LABS: BASO # 0.1 x10^3/uL (0.0-0.2); BASO % 1 % (0-3); EOS # 0.6 x10^3/uL (0.0-0.7); EOS % 8 % (0-3); HEMATOCRIT 42.3 % (36.0-47.0); HEMOGLOBIN 14.1 g/dL (12.0-15.5); LYMPH # 1.9 x10^3/uL (1.0-4.8); LYMPH % 25 % (24-48); MEAN CORPUSCULAR HEMOGLOBIN 31 pg (25-35); MEAN CORPUSCULAR HGB CONC 33 g/dL (31-37); MEAN CORPUSCULAR VOLUME 93 fL (79-100); MONO # 0.5 x10^3/uL (0.0-1.1); MONO % 6 % (0-9); NEUT # 4.6 x10^3uL (1.8-7.7); NEUT % 59 % (31-73); PLATELET COUNT 285 x10^3/uL (140-400); RED BLOOD COUNT 4.53 x10^6/uL (3.50-5.40); RED CELL DISTRIBUTION WIDTH 12.9 % (11.5-14.5); WHITE BLOOD COUNT 7.7 x10^3/uL (4.0-11.0)
[2020-02-11 20:58] LABS: CALCIUM 9.5 mg/dL (8.5-10.1); CREATININE 0.6 mg/dL (0.6-1.0); GFR 126.2; POTASSIUM 3.4 mmol/L (3.5-5.1)
[2020-02-11 21:04] LABS: ALBUMIN 4.2 g/dL (3.4-5.0); ALBUMIN/GLOBULIN RATIO 1.3 (1.0-1.7); TOTAL BILIRUBIN 0.3 mg/dL (0.2-1.0); TOTAL PROTEIN 7.5 g/dL (6.4-8.2)
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
[2020-02-11 21:15] VITALS: BP 146/56
[2020-02-11] MEDS ORDERED: POLYETHYLENE GLYCOL 3350 17 GM PACKET. PO ONE (21:15)
[2020-02-11] MEDS ORDERED: SODIUM PHOSPHATES 19/7GM 133 ML ENEMA. PR ONE (21:15)
[2020-02-11] MEDS ORDERED: ONDANSETRON PF 4 MG/2 ML VIAL. ONE (21:39)
[2020-02-11] MEDS ORDERED: ONDANSETRON PF 4 MG/2 ML VIAL. IVP ONE (22:00)
[2020-02-11 22:14] LABS: BACTERIA,URINE MOD /HPF (0-FEW); BILIRUBIN,URINE NEG (NEG); CLARITY,URINE CLOUDY; COLOR,URINE YELLOW; GLUCOSE,URINE NEG (NEG); NITRITE,URINE NEG (NEG); SQUAMOUS EPITHELIAL CELL,UR MOD /LPF
[2020-02-11 22:15] LABS: AMORPHOUS SEDIMENT,UR PRESENT /HPF
[2020-02-11] MEDS ORDERED: ALBU2.5V8 IH (22:45)
== END 2020-02-11 22:46 | disposition home or self-care (01) ==
LOC: ER 20:07
DX: O26.891 Other specified pregnancy related conditions, first trimester (principal); K59.03 Drug induced constipation; T40.0X5A Adverse effect of opium, initial encounter; O99.511 Diseases of the respiratory system complicating pregnancy, first trimester; J45.909 Unspecified asthma, uncomplicated; O99.331 Smoking (tobacco) complicating pregnancy, first trimester; O99.321 Drug use complicating pregnancy, first trimester; F15.10 Other stimulant abuse, uncomplicated; Z3A.09 9 weeks gestation of pregnancy; F12.10 Cannabis abuse, uncomplicated; Y92.89 Other specified places as the place of occurrence of the external cause
CPT/HCPCS: 36415; 80053; 81001; 85025; 87086; 96361; 96374; 99283; J2405; J7030

== ENCOUNTER 2020-05-29 12:59 | Emergency (ER) | payer MEDICAID ==
[~2020-05-29] VITALS: Ht 162.6 cm; Wt 56.8 kg
[2020-05-29] MEDS ORDERED: DEXAMETHASONE SOD PHOS 10 MG/ML VIAL. IM ONE (13:45)
[2020-05-29] MEDS ORDERED: ALBUTEROL SULFATE 2.5 MG/3 ML NEBU. NEB ONE (13:45)
[2020-05-29] MEDS ORDERED: ALBUTEROL SULFATE 2.5 MG/3 ML NEBU. CONT NEB ONE (14:00)
[2020-05-29] MEDS ORDERED: ALBUTEROL SULFATE 2.5 MG/3 ML NEBU. ONE (14:02)
[2020-05-29 14:10] LABS: BASO # 0.1 x10^3/uL (0.0-0.2); BASO % 1 % (0-3); EOS % 13 % (0-3); HEMATOCRIT 36.3 % (36.0-47.0); HEMOGLOBIN 11.9 g/dL (12.0-15.5); LYMPH # 1.6 x10^3/uL (1.0-4.8); LYMPH % 20 % (24-48); MEAN CORPUSCULAR HEMOGLOBIN 32 pg (25-35); MEAN CORPUSCULAR HGB CONC 33 g/dL (31-37); MEAN CORPUSCULAR VOLUME 96 fL (79-100); MONO # 0.4 x10^3/uL (0.0-1.1); MONO % 5 % (0-9); NEUT % 62 % (31-73); PLATELET COUNT 241 x10^3/uL (140-400); RED BLOOD COUNT 3.76 x10^6/uL (3.50-5.40); RED CELL DISTRIBUTION WIDTH 13.6 % (11.5-14.5); WHITE BLOOD COUNT 8.1 x10^3/uL (4.0-11.0)
[2020-05-29 14:23] LABS: CALCIUM 8.8 mg/dL (8.5-10.1); CREATININE 0.6 mg/dL (0.6-1.0); POTASSIUM 3.7 mmol/L (3.5-5.1)
[2020-05-29 14:28] LABS: BACTERIA,URINE MANY /HPF (0-FEW); BILIRUBIN,URINE NEG (NEG); CLARITY,URINE CLEAR; COLOR,URINE YELLOW; GLUCOSE,URINE NEG (NEG); NITRITE,URINE NEG (NEG); RBC,URINE RARE /HPF (0-2); SQUAMOUS EPITHELIAL CELL,UR MOD /LPF; UROBILINOGEN,URINE 0.2 mg/dL (0.2 mg/dL)
[2020-05-29 14:30] LABS: ALBUMIN 3.2 g/dL (3.4-5.0); ALBUMIN/GLOBULIN RATIO 0.9 (1.0-1.7); TOTAL BILIRUBIN 0.2 mg/dL (0.2-1.0); TOTAL PROTEIN 6.7 g/dL (6.4-8.2)
[2020-05-29] MEDS ORDERED: PRED20TA PO (15:00)
--- NOTE | 2020-05-29 15:01 | PHYS DOC ---
Past History Past Medical History: Asthma, Other Additional Past Medical Histor: MISCARRIAGE, DRUG ABUSE Past Surgical History: No Surgical History Smoking: Cigarettes, Less than 1pk/day Alcohol Use: None Drug Use: Amphetamine, Marijuana, Methamphetamine Social History Narrative: NO OPIATE USE SINCE BEFORE 2019 Adult General Chief Complaint Chief Complaint: SHORTNESS OF BREATH HPI HPI Patient is a 20-year-old female presents to the emergency department with concerns of asthma attack that started last night approximately 2 AM. Patient states she has taken 6 breathing treatments since the asthma attack started. Patient states that if she gets off prednisone she should feel a lot better. Patient reports she is currently 6 months with a due date of September [id number] reporting her last menstrual cycle was around December [id number], patient reports she is a high risk related to an opiate addiction which she is currently being treated with Suboxone that she started on March 14, 2020. Patient reports she has never been officially diagnosed with asthma, reports she started having asthma problems 2 years ago when she quit smoking cigarettes and bought a nebulizer machine on [place]. Patient states she has been coming to various emergency departments to obtain albuterol nebulizer medication and metered-dose inhalers. Patient reports she has never seen a primary care doctor for her asthma problems. 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 Patient reports she has a pulmonology appointment on June [id number]. Patient denies any chest pain, chest congestion, chest palpitations, recent fever or chills, cough, nausea, vomiting, diarrhea or abdominal pains. Patient reports she can feel her baby move, is not experiencing any problems with her , and has no worries about this current . Patient states she has been 3 times, has one 3-year-old son, had a miscarriage when she was 15 years old during her first . Patient denies any vaginal discharge, urinary tract infection signs and symptoms, has no STI concerns. Patient denies allergies to medications. Re ports her only medications she takes at home are Suboxone, albuterol MDI, albuterol nebulizer treatments. Review of Systems Review of Systems 14 body systems of review of systems have been reviewed. See HPI for pertinent positives and negative responses, otherwise all other systems are negative, nonpertinent or noncontributory. Current Medications Current Medications Current Medications Medications (Trade) Dose Ordered Sig/Eliel Start Time Stop Time Status Last Admin Dose Admin Albuterol Sulfate (Ventolin) 2.5 mg STK-MED ONCE 05/29/20 14:02 05/29/20 14:03 DC Dexamethasone Sodium Phosphate (Decadron) 10 mg 1X ONCE 05/29/20 13:45 05/29/20 13:47 DC 05/29/20 14:33 10 MG Allergies Allergies Allergies Coded Allergies Type Severity Reaction Last Updated Verified No Known Drug Allergies 02/11/20 No Physical Exam Physical Exam Constitutional: Well developed, well nourished, no acute distress, non-toxic appearance. 20-year-old female in no apparent distress. HENT: Normocephalic, atraumatic, bilateral external ears normal, oropharynx moist, no oral exudates, nose normal. Eyes: PERRLA, EOMI, conjunctiva normal, no discharge. Neck: Normal range of motion, no tenderness, supple, no stridor. Cardiovascular:Heart rate regular rhythm, no murmur Lungs & Thorax: Bilateral breath sounds scattered i.e. wheezing to auscultation all lung hensley only no audible i.e. wheezing appreciated. Abdomen: Bowel sounds normal, soft, no tenderness, no masses, no pulsatile masses. Skin: Warm, dry, no erythema, no rash. Back: No tenderness, no CVA tenderness. Extremities: No tenderness, no cyanosis, no clubbing, ROM intact, no edema. Neurologic: Alert and oriented X 3, normal motor function, normal sensory function, no focal deficits noted. Psychologic: Affect normal, judgement normal, mood normal. Current Patient Data Vital Signs Vital Signs Date Time Temp Pulse Resp B/P (MAP) Pulse Ox O2 Delivery O2 Flow Rate FiO2 05/29/20 14:10 93 Room Air 05/29/20 13:05 98.1 97 20 110/61 (77) Lab Results Laboratory Tests Test 05/29/20 13:55 White Blood Count 8.1 x10^3/uL Red Blood Count 3.76 x10^6/uL Hemoglobin 11.9 g/dL Hematocrit 36.3 % Mean Corpuscular Volume 96 fL Mean Corpuscular Hemoglobin 32 pg Mean Corpuscular Hemoglobin Concent 33 g/dL Red Cell Distribution Width 13.6 % Platelet Count 241 x10^3/uL Neutrophils (%) (Auto) 62 % Lymphocytes (%) (Auto) 20 % Monocytes (%) (Auto) 5 % Eosinophils (%) (Auto) 13 % Basophils (%) (Auto) 1 % Neutrophils # (Auto) 5.0 x10^3uL Lymphocytes # (Auto) 1.6 x10^3/uL Monocytes # (Auto) 0.4 x10^3/uL Eosinophils # (Auto) 1.0 x10^3/uL Basophils # (Auto) 0.1 x10^3/uL Urine Collection Type Unknown Urine Color Yellow Urine Clarity Clear Urine pH 7.0 Urine Specific [place] 1.015 Urine Protein Neg Urine Glucose (UA) Neg mg/dL Urine Ketones (Stick) Neg mg/dL Urine Blood Neg Urine Nitrite Neg Urine Bilirubin Neg Urine Urobilinogen Dipstick 0.2 mg/dL Urine Leukocyte Esterase Neg Urine RBC Rare /HPF Urine WBC 1-4 /HPF Urine Squamous Epithelial Cells Mod /LPF Urine Bacteria Many /HPF Urine Mucus Mod /LPF Sodium Level 139 mmol/L Potassium Level 3.7 mmol/L Chloride Level 104 mmol/L Carbon Dioxide Level 23 mmol/L Anion Gap 12 Blood Urea Nitrogen 6 mg/dL Creatinine 0.6 mg/dL Estimated GFR (Cockcroft-Gault) 125.0 BUN/Creatinine Ratio 10 Glucose Level 97 mg/dL Calcium Level 8.8 mg/dL Total Bilirubin 0.2 mg/dL Aspartate Amino Transf (AST/SGOT) 14 U/L Alanine Aminotransferase (ALT/SGPT) 17 U/L Alkaline Phosphatase 67 U/L Total Protein 6.7 g/dL Albumin 3.2 g/dL Albumin/Globulin Ratio 0.9 Current Medications Medications (Trade) Dose Ordered Sig/Eliel Route PRN Reason Start Time Stop Time Status Last Admin Dose Admin Dexamethasone Sodium Phosphate (Decadron) 10 mg 1X ONCE IM 05/29/20 13:45 05/29/20 13:47 DC 05/29/20 14:33 Albuterol Sulfate (Ventolin) 2.5 mg 1X ONCE NEB 05/29/20 13:45 05/29/20 14:01 DC Albuterol Sulfate (Ventolin) 10 mg 1X ONCE CONT NEB 05/29/20 14:00 05/29/20 14:02 DC 05/29/20 14:08 Albuterol Sulfate (Ventolin) 2.5 mg STK-MED ONCE .ROUTE 05/29/20 14:02 05/29/20 14:03 DC Laboratory Tests Test 05/29/20 13:55 White Blood Count 8.1 x10^3/uL (4.0-11.0) Red Blood Count 3.76 x10^6/uL (3.50-5.40) Hemoglobin 11.9 g/dL (12.0-15.5) L Hematocrit 36.3 % (36.0-47.0) Mean Corpuscular Volume 96 fL (79-100) Mean Corpuscular Hemoglobin 32 pg (25-35) Mean Corpuscular Hemoglobin Concent 33 g/dL (31-37) Red Cell Distribution Width 13.6 % (11.5-14.5) Platelet Count 241 x10^3/uL (140-400) Neutrophils (%) (Auto) 62 % (31-73) Lymphocytes (%) (Auto) 20 % (24-48) L Monocytes (%) (Auto) 5 % (0-9) Eosinophils (%) (Auto) 13 % (0-3) H Basophils (%) (Auto) 1 % (0-3) Neutrophils # (Auto) 5.0 x10^3uL (1.8-7.7) Lymphocytes # (Auto) 1.6 x10^3/uL (1.0-4.8) Monocytes # (Auto) 0.4 x10^3/uL (0.0-1.1) Eosinophils # (Auto) 1.0 x10^3/uL (0.0-0.7) H Basophils # (Auto) 0.1 x10^3/uL (0.0-0.2) Urine Collection Type Unknown Urine Color Yellow Urine Clarity Clear Urine pH 7.0 Urine Specific [place] 1.015 Urine Protein Neg (NEG-TRACE) Urine Glucose (UA) Neg mg/dL (NEG) Urine Ketones (Stick) Neg mg/dL (NEG) Urine Blood Neg (NEG) Urine Nitrite Neg (NEG) Urine Bilirubin Neg (NEG) Urine Urobilinogen Dipstick 0.2 mg/dL (0.2 mg/dL) Urine Leukocyte Esterase Neg (NEG) Urine RBC Rare /HPF (0-2) Urine WBC 1-4 /HPF (0-4) Urine Squamous Epithelial Cells Mod /LPF Urine Bacteria Many /HPF (0-FEW) Urine Mucus Mod /LPF Sodium Level 139 mmol/L (136-145) Potassium Level 3.7 mmol/L (3.5-5.1) Chloride Level 104 mmol/L (98-107) Carbon Dioxide Level 23 mmol/L (21-32) Anion Gap 12 (6-14) Blood Urea Nitrogen 6 mg/dL (7-20) L Creatinine 0.6 mg/dL (0.6-1.0) Estimated GFR (Cockcroft-Gault) 125.0 BUN/Creatinine Ratio 10 (6-20) Glucose Level 97 mg/dL (70-99) Calcium Level 8.8 mg/dL (8.5-10.1) Total Bilirubin 0.2 mg/dL (0.2-1.0) Aspartate Amino Transferase (AST) 14 U/L (15-37) L Alanine Aminotransferase (ALT) 17 U/L (14-59) Alkaline Phosphatase 67 U/L (46-116) Total Protein 6.7 g/dL (6.4-8.2) Albumin 3.2 g/dL (3.4-5.0) L Albumin/Globulin Ratio 0.9 (1.0-1.7) L EKG EKG [] Radiology/Procedures Radiology/Procedures [] Heart Score C/O Chest Pain: No Risk Factors: Risk Factors: DM, Current or recent (<one month) smoker, HTN, HLP, family history of CAD, obesity. Risk Scores: Risk Factors: DM, Current or recent (<one month) smoker, HTN, HLP, family history of CAD, obesity. Course & Med Decision Making Course & Med Decision Making Pertinent Labs and Imaging studies reviewed. (See chart for details) 20-year-old female, vital signs reviewed, presents emergency department concerning of asthma attack. Physical examination was consistent with asthma exacerbation. Patient was in no respiratory distress and current oxygen saturation was 97% during examination. Patient was on room air. Concerning that patient has not had a asthma work-up with her primary care physician, however has appointment with pulmonology specialist on the of this month for pulmonary exam. Offered chest x-ray to rule out pulmonary infectious process, patient has refused x-ray examination. Patient was given 10 mg IM dexamethasone, 1 hour-long breathing treatment in ER, a urinalysis assay. Patient is 23 weeks 5 days per EDC Patient's urine was not infected, upon reexamination of the patient, the patient states she feels much better, slight expiratory wheeze and bilateral upper lobes only to auscultation. We will discharged home with strict follow-up precautions and prescription for p.o. prednisone 20 mg daily x5 days. Patient gave verbal understanding of discharge home instructions, follow-up with primary care, will keep her pulmonary appointment on the , return to ER precautions and concerns, discharged home without incident. Dragon Disclaimer Dragon Disclaimer This electronic medical record was generated, in whole or in part, using a voice recognition dictation system. Departure Departure: Impression: Primary Impression: Asthma exacerbation Additional Impression: Disposition: 01 DC HOME SELF CARE/HOMELESS Condition: GOOD Referrals: PCP,NO (PCP) Patient Instructions: Asthma, Adult Additional Instructions: Please take prescribed medications as directed, keep your follow-up appointments with your SENIOR INTERACTION DESIGNER and asw specialist. Return to the emergency department for worsening symptoms or other concerns. EMERGENCY DEPARTMENT GENERAL DISCHARGE INSTRUCTIONS Thank you for coming to [facility] ([facility]) today and trusting us with you care. We trust that you had a positivie experience in our Emergency Department. If you wish to speak to the department management, you may call the director at [phone]. YOUR FOLLOW UP INSTRUCTIONS ARE FOLLOWS: 1. Do you have a private Doctor? If you do not have a private doctor, please ask for a resource list of physicians or clinics that may be able to assist you with follow up care. 2. The Emergency Physician has interpreted your x-rays. The X-Ray specialist will also review them. If there is a change in the findings, you will be notified in 48 hours when at all possible. 3. A lab test or culture has been done, your results will be reviewed and you will be notified if you need a change in treatment. ADDITIONAL INSTRUCTIONS AND INFORMATION: 1. Your care today has been supervised by a physician who is specially trained in emergency care. Many problems require more than one evaluation for a complete diagnosis and treatment. We recommend that you schedule your follow up appointment as recommended to ensure complete treatment of you illness or injury. If you are unable to obtain follow up care and continue to have a problem, or if your condition worsens, we recommend that you return to the ED. 2. We are not able to safely determine your condition over the phone nor are we able to give sound medical advice over the phone. For these safety reasons, if you call for medical advice we will ask you to come to the ED for further evaluation. 3. If you have any questions regarding these discharge instructions please call the ED at [phone]. SAFETY INFORMATION: In the interest of safety, wellness, and injury prevention; we encourage you to wear your sealbelt, if you smoke; quite smoking, and we encourage family to use a protective helmet for bicycling and other sporting events that present an increased risk for head injury. IF YOUR SYMPTOMS WORSEN OR NEW SYMPTOMS DEVELOP, OR YOU HAVE CONCERNS ABOUT YOUR CONDITION; OR IF YOUR CONDITION WORSENS WHILE YOU ARE WAITING FOR YOUR FOLLOW UP APPOINTMENT; EITHER CONTACT YOUR PRIMARY CARE DOCTOR, THE PHYSICIAN WHOSE NAME AND NUMBER YOU WERE GIVEN, OR RETURN TO THE ED IMMEDIATELY. Scripts Prednisone (PREDNISONE) 20 Mg Tablet 1 TAB PO DAILY for allergies for 5 Days, #5 TAB 0 Refills Prov: HERO CASTILLO APRN 05/29/20 Problem Qualifiers Primary Impression: Asthma exacerbation Asthma severity: mild Asthma persistence: persistent Qualified Codes: J45.31 - Mild persistent asthma with (acute) exacerbation Additional Impression: Weeks of gestation: 23 weeks Qualified Codes: Z3A.23 - 23 weeks gestation of EHRO CASTILLO APRN May 29, 2020 15:01
[2020-05-29 15:05] VITALS: BP 131/58
== END 2020-05-29 15:07 | disposition home or self-care (01) ==
LOC: ER 12:59
DX: O99.512 Diseases of the respiratory system complicating pregnancy, second trimester (principal); J45.909 Unspecified asthma, uncomplicated; F12.90 Cannabis use, unspecified, uncomplicated; F19.90 Other psychoactive substance use, unspecified, uncomplicated; F17.210 Nicotine dependence, cigarettes, uncomplicated; Z3A.23 23 weeks gestation of pregnancy
CPT/HCPCS: 36415; 80053; 81001; 85025; 87086; 94640; 96372; 99285; J1100; J7613

== ENCOUNTER 2021-03-30 12:30 | Emergency (ER) | payer MEDICAID ==
[~2021-03-30] VITALS: Ht 162.6 cm; Wt 55.0 kg
[2021-03-30 13:31] VITALS: BP 111/80
[2021-03-30] MEDS ORDERED: DEXAMETHASONE 4 MG TABLET PO ONE (14:00)
[2021-03-30] MEDS ORDERED: IPRATRPIUM/ALBUTEROL 0.5/2.5MG 3 ML NEBU. NEB ONE (14:00)
--- NOTE | 2021-03-30 14:05 | PHYS DOC ---
Past History Past Medical History: Asthma, Other Additional Past Medical Histor: MISCARRIAGE, DRUG ABUSE Past Surgical History: No Surgical History Smoking: Cigarettes, Less than 1pk/day Alcohol Use: None Drug Use: Amphetamine, Marijuana, Methamphetamine General Adult EDM: Chief Complaint: SHORTNESS OF BREATH HPI: HPI: Patient is a 21 year old female with history of asthma who presents with shortness of breath, cough and wheezing that began yesterday. Patient states that she used her albuterol inhaler yesterday without symptom relief. Today, her symptoms have been persistent. She reports audible wheezing and difficulty breathing. She denies sputum production. Patient states she does not have a primary care doctor, but has asthma exacerbations frequently. Review of Systems: Review of Systems: Constitutional: Denies fever, chills or generalized weakness Eyes: Denies change in visual acuity, visual field deficits or discharge HENT: Denies ear pain, nasal congestion or sore throat Respiratory: See HPI Cardiovascular: Denies chest pain, palpitations or edema GI: Denies abdominal pain, nausea, vomiting, bloody stools or diarrhea : Denies dysuria or hematuria Musculoskeletal: Denies back pain or joint pain Integument: Denies rash or other skin lesion Neurologic: Denies headache, focal weakness or sensory changes Current Medications: Current Meds: Current Medications Medications (Trade) Dose Ordered Sig/Eilel Route PRN Reason Start Time Stop Time Status Last Admin Dose Admin Albuterol/ Ipratropium (Duoneb) 3 ml 1X ONCE NEB 03/30/21 14:00 03/30/21 14:01 DC 03/30/21 14:11 Allergies: Allergies: Allergies Coded Allergies Type Severity Reaction Last Updated Verified No Known Drug Allergies 02/11/20 No Physical Exam: PE: Constitutional: Well developed, well nourished, no acute distress, non-toxic appearance. HENT: Normocephalic, atraumatic, bilateral external ears normal, oropharynx moist, no oral exudates, nose normal. Eyes: PERRLA, EOMI, conjunctiva normal, no discharge. Neck: Normal range of motion, no tenderness, no stridor. Cardiovascular: Heart rate regular rhythm, no murmur. Lungs & Thorax: Audible wheezing inspiratory and expiratory. Skin: Warm, dry, no erythema, no rash. Extremities: No tenderness, no cyanosis, no clubbing, ROM intact, no edema. Neurologic: Alert and oriented x4, no focal deficits noted. Current Patient Data: Labs: Laboratory Tests Test 03/30/21 13:41 03/30/21 13:56 Influenza Type A (Rapid) Negative (NEGATIVE) Influenza Type B (Rapid) Negative (NEGATIVE) Bedside Urine HCG, Qualitative hcg positive (Negative) Vital Signs: Vital Signs Date Time Temp Pulse Resp B/P (MAP) Pulse Ox O2 Delivery O2 Flow Rate FiO2 03/30/21 13:31 98.6 89 18 111/80 (90) 96 Radiology/Procedures: Radiology/Procedures: PROCEDURE: CHEST AP ONLY Exam: Chest one view INDICATION: Shortness of breath TECHNIQUE: Frontal view of the chest Comparisons: 04/24/2019 FINDINGS: The cardiomediastinal silhouette and pulmonary vessels are within normal limits. The lung and pleural spaces are clear. IMPRESSION: No acute cardiopulmonary process. Electronically signed by: Senait Bell MD (03/30/2021 4:03 PM) UI-MARLEEK Heart Score: C/O Chest Pain: No Course & Med Decision Making: Course & Med Decision Making Pertinent Labs and Imaging studies reviewed. (See chart for details) Patient is a 21-year-old female with history of asthma who presents to the emergency department with asthma exacerbation with wheezing. Patient also states that her period is almost a month late. Work-up today will include chest x-ray, urine test, swabs for influenza A&B as well as COVID-19. Patient's test came back positive, so patient will not be treated with steroids for her asthma exacerbation. Patient received a DuoNeb treatment in the department. Her symptoms were much improved and patient desires to go home. She was instructed to obtain primary care for further management of her chronic asthma to limit exacerbations. She states she always has exacerbations when she is . Patient given return precautions as well as quarantine instructions until the COVID-19 swab result becomes available. She understands and is agreeable to discharge plan. Von Disclaimer: Von Disclaimer: This electronic medical record was generated, in whole or in part, using a voice recognition dictation system. Departure Departure: Impression: Primary Impression: Asthma exacerbation Qualified Codes: J45.901 - Unspecified asthma with (acute) exacerbation Additional Impression: Qualified Codes: Z34.90 - Encounter for supervision of normal , unspecified, unspecified trimester Disposition: 01 HOME / SELF CARE / HOMELESS Condition: IMPROVED Referrals: PCP,JOSH (PCP) Patient Instructions: ABCs of , Asthma, Adult, [id number] Additional Instructions: Follow the following supportive treatment measures: - Cool mist humidifier with plain water at bedside while you sleep - Alternate ibuprofen and acetaminophen every four hours for body aches/fever/headache If antibiotics were prescribed, take them as directed. You have been tested for or diagnosed with COVID-19 infection. It is an infection caused by a new type of coronavirus. COVID-19 will cause cold-like or mild flu symptoms in most. It can cause more severe symptoms like problems breathing in some. There is no treatment for COVID-19. The body will clear the infection over time. Self-care will help to ease discomfort. Steps to Take: - Rest as needed. - Choose healthy foods including fruits and vegetables. Drink water throughout the day. - Get plenty of sleep each night. - If you smoke, try to quit. It may ease breathing. - Avoid alcohol. - Keep Others Healthy - The virus can spread to others. Droplets are released every time you sneeze or cough. The droplets can get into the mouth, nose, or eyes of people near you and lead to infection. To lower the chances of spreading COVID-19 to others: Stay at home until your doctor has said it is safe to leave. If you tested positive this will mean staying isolated until both of the following are true: - At least 7 days have passed since the start of illness. - You are free of fever for at least 72 hours without the use of medicine. During this time: - Avoid public areas, events, or transportation. Do not return to work or school until your doctor has said it is safe to do so. - Call ahead if you need to go to a medical center. Let them know you may have COVID-19. It will help them guide you where to go. They may also ask you to wear a facemask when you come to the office. - If you call for emergency medical services, let them know you may have COVID- 19. While at home: - Try to avoid close contact with others. Stay about 6 feet away. - If possible, spend most of your time in a separate room from others. - Use a face mask if you will be in close contact with others such as sharing a room or vehicle. - Have someone wipe down common surfaces in the home. Use household gas reverser every day on areas like doorknobs, counters, or sinks. - Cough or sneeze into a tissue. Throw the tissue away right after use. If a tissue is not available, cough or sneeze into your elbow. - Wash your hands often. Wash them after sneezing or coughing. Use soap and water and wash or at least 20 seconds. Alcohol based hand sanitation truck cleaner can be used if soap and water is not available. - Do not prepare food for others. Avoid sharing personal items like forks, spoons, or toothbrushes. - Avoid close contact with pets while you are sick. There is no evidence of the virus passing to pets. This is a safety step until more is known about this virus. - Isolation can be frustrating. Social interaction can help. Keep in touch with friends and family through phone and tech options. You can still interact with others in your home, just keep a safe distance of about 6 feet. Follow-up: - Your doctors office will check in with you to see if there are any changes in your health. - You may be asked to keep track of symptoms to share with them. They will also let you know when you are clear to be in public again. Contact your doctor if your recovery is not going as you expect. Get emergency care if you have problems such as: - Trouble breathing with oxygen saturation <90% - Nonstop chest pain or pressure - Changes in awareness, confusion, or problems waking - Lips or face have bluish color - Worsening of symptoms If you think you have an emergency, call for emergency medical services right away. As taken from [facility] Albuterol Sulfate (PROAIR HFA INHALER) 8.5 Gm Hfa.aer.ad 2 PUFF IH PRN Q4-6HRS PRN for wheezing for 21 Days, #1 INHALER 0 Refills Prov: KATERINA MCGINNIS 03/30/21 KATERINA MCGINNIS Mar 30, 2021 14:05
[2021-03-30 14:14] LABS: INFLUENZA A PATIENT NEGATIVE (NEGATIVE); INFLUENZA B PATIENT NEGATIVE (NEGATIVE)
[2021-03-30] MEDS ORDERED: ALBU2.5V8 IH (15:09)
--- NOTE | 2021-03-30 16:06 | RAD ---
Exam: Chest one view INDICATION: Shortness of breath TECHNIQUE: Frontal view of the chest Comparisons: 04/24/2019 FINDINGS: The cardiomediastinal silhouette and pulmonary vessels are within normal limits. The lung and pleural spaces are clear. IMPRESSION: No acute cardiopulmonary process. Electronically signed by: Senait Bell MD (03/30/2021 4:03 PM) JUAN C
== END 2021-03-30 15:14 | disposition home or self-care (01) ==
LOC: ER 12:30
DX: O98.511 Other viral diseases complicating pregnancy, first trimester (principal); U07.1 COVID-19; O99.511 Diseases of the respiratory system complicating pregnancy, first trimester; J45.901 Unspecified asthma with (acute) exacerbation; O99.311 Alcohol use complicating pregnancy, first trimester; Z3A.00 Weeks of gestation of pregnancy not specified
CPT/HCPCS: 71045; 81025; 87804; 94640; 99284; C9803; U0003

== ENCOUNTER 2021-04-05 20:05 | Emergency (ER) | payer MEDICAID | END 2021-04-06 02:29 | disposition left against medical advice (07) | LOC: ER 20:05 | DX: O98.511 Other viral diseases complicating pregnancy, first trimester (principal); U07.1 COVID-19; Z3A.12 12 weeks gestation of pregnancy; Z53.21 Procedure and treatment not carried out due to patient leaving prior to being seen by health care provider ==

== ENCOUNTER 2021-06-02 15:25 | Emergency (ER) | payer MEDICAID ==
[~2021-06-02] VITALS: Ht 162.6 cm; Wt 52.0 kg
[2021-06-02 15:51] VITALS: BP 119/60
[2021-06-02] MEDS ORDERED: IPRATRPIUM/ALBUTEROL 0.5/2.5MG 3 ML NEBU. NEB ONE (16:00)
[2021-06-02] MEDS ORDERED: methylPREDNISolone SOD SUCC PF 125 MG/2 ML VIAL. IV ONE (16:00)
[2021-06-02] MEDS ORDERED: ALBUTEROL SULFATE 2.5 MG/3 ML NEBU. CONT NEB ONE (16:00)
--- NOTE | 2021-06-02 16:01 | PHYS DOC ---
Past History Past Medical History: Asthma, Other Additional Past Medical Histor: MISCARRIAGE, DRUG ABUSE Past Surgical History: No Surgical History Smoking: Cigarettes, Less than 1pk/day Alcohol Use: None Drug Use: Amphetamine, Marijuana, Methamphetamine General Adult EDM: Chief Complaint: ASTHMA HPI: HPI: 21-year-old female who is 13 weeks presents with asthma exacerbation. Patient has been feeling more short of breath the last couple of days. She uses albuterol multiple times a day and also uses an inhaled steroid. The patient is a smoker but she has not been smoking. Everyone else in her household smokes. She has had asthma for a long time. She denies any complications with her at this time. Review of Systems: Review of Systems: Constitutional: Denies fever or chills Eyes: Denies change in visual acuity HENT: Denies nasal congestion or sore throat Respiratory: shortness of breath Cardiovascular: Denies chest pain or edema GI: Denies abdominal pain, nausea, vomiting, bloody stools or diarrhea : Denies dysuria Musculoskeletal: Denies back pain or joint pain Integument: Denies rash Neurologic: Denies headache, focal weakness or sensory changes Endocrine: Denies polyuria or polydipsia Lymphatic: Denies swollen glands Psychiatric: Denies depression or anxiety Current Medications: Current Meds: Current Medications Medications (Trade) Dose Ordered Sig/Eliel Start Time Stop Time Status Last Admin Dose Admin Methylprednisolone Sodium Succinate (SOLU-Medrol 125MG VIAL) 125 mg 1X ONCE 06/02/21 16:00 06/02/21 16:01 UNV Allergies: Allergies: Allergies Coded Allergies Type Severity Reaction Last Updated Verified No Known Drug Allergies 02/11/20 No Physical Exam: PE: Constitutional: Well developed, well nourished, no acute distress, non-toxic [place]. [] HENT: Normocephalic, atraumatic, bilateral external ears normal, oropharynx moist, no oral exudates, nose normal. [] Eyes: PERRLA, EOMI, conjunctiva normal, no discharge. [] Neck: Normal range of motion, no tenderness, supple, no stridor. [] Cardiovascular: Heart rate regular rhythm, no murmur [] Lungs & Thorax: Bilateral breath sounds with diffuse wheezing [] Abdomen: Bowel sounds normal, soft, no tenderness, no masses, no pulsatile masses. [] Skin: Warm, dry, no erythema, no rash. [] Back: No tenderness, no CVA tenderness. [] Extremities: No tenderness, no cyanosis, no clubbing, ROM intact, no edema. [] Neurologic: Alert and oriented X 3, normal motor function, normal sensory function, no focal deficits noted. [] Psychologic: Affect normal, judgement normal, mood normal. [] EKG: EKG: [] Radiology/Procedures: Radiology/Procedures: [] Impressions: EXAMINATION: XR CHEST 1V CLINICAL HISTORY: Shortness of breath. EXAM DATE/TIME: 06/02/2021 4:06 PM COMPARISON: 03/30/2021 FINDINGS: Lines, Tubes, and Devices: None. Cardiomediastinal Silhouette: Within normal limits. Lungs and Pleura: No evidence of focal airspace consolidation, pleural effusion, or pneumothorax. Bones and Soft Tissues: No acute osseous abnormality. IMPRESSION: No evidence of acute cardiopulmonary abnormality or significant interval change. Electronically signed by: Ector Lyle DO (06/02/2021 4:12 PM) [id number] DICTATED AND SIGNED BY: ECTOR LYLE DO DATE: 06/02/21 161 CC: KAYLYNN SADLER DO; PCP,NO ~MTH0 0 Heart Score: C/O Chest Pain: N/A Risk Factors: Risk Factors: DM, Current or recent (<one month) smoker, HTN, HLP, family history of CAD, obesity. Risk Scores: Score 0 - 3: 2.5% MACE over next 6 weeks - Discharge Home Score 4 - 6: 20.3% MACE over next 6 weeks - Admit for Clinical Observation Score 7 - 10: 72.7% MACE over next 6 weeks - Early Invasive Strategies Course & Med Decision Making: Course & Med Decision Making Pertinent Labs and Imaging studies reviewed. (See chart for details) On arrival the patient has diffuse wheezing. We have given her a DuoNeb treatment but she is still very wheezy. I have ordered 125 Solu-Medrol IV. I discussed the risks of steroid treatment in . Patient states verbal understanding. I believe this risk profile is low compared to the benefit. This is consistent with national asthma education prevention program expert guidance and ACOG. [] Von Disclaimer: Von Disclaimer: This electronic medical record was generated, in whole or in part, using a voice recognition dictation system. Departure Departure: Impression: Primary Impression: Asthma exacerbation Additional Impression: Disposition: HOME / SELF CARE / HOMELESS Condition: STABLE Referrals: PCP,NO (PCP) Patient Instructions: Asthma, Adult, [id number], - Second Trimester, [id number] Scripts Budesonide (PULMICORT FLEXHALER) 180 Mcg Aer.pow.[email or web address] 2 PUFF IH BID for asthma, #1 INHALER 3 Refills Prov: KAYLYNN SADLER DO 06/02/21 Prednisone (PREDNISONE) 10 Mg Tablet 50 MG PO DAILY for asthma for 2 Days, #10 TAB Prov: KAYLYNN SADLER DO 06/02/21 KAYLYNN SADLER DO Jun 02, 2021 16:01
[2021-06-02 16:11] LABS: BASO # 0.1 x10^3/uL (0.0-0.2); BASO % 1 % (0-3); EOS # 2.7 x10^3/uL (0.0-0.7); EOS % 31 % (0-3); HEMATOCRIT 37.7 % (36.0-47.0); HEMOGLOBIN 12.8 g/dL (12.0-15.5); LYMPH # 2.1 x10^3/uL (1.0-4.8); LYMPH % 24 % (24-48); MEAN CORPUSCULAR HEMOGLOBIN 32 pg (25-35); MEAN CORPUSCULAR HGB CONC 34 g/dL (31-37); MEAN CORPUSCULAR VOLUME 94 fL (79-100); MONO # 0.4 x10^3/uL (0.0-1.1); MONO % 4 % (0-9); NEUT # 3.5 x10^3uL (1.8-7.7); NEUT % 41 % (31-73); PLATELET COUNT 280 x10^3/uL (140-400); RED BLOOD COUNT 3.99 x10^6/uL (3.50-5.40); RED CELL DISTRIBUTION WIDTH 13.2 % (11.5-14.5); WHITE BLOOD COUNT 8.7 x10^3/uL (4.0-11.0)
--- NOTE | 2021-06-02 16:15 | RAD ---
EXAMINATION: XR CHEST 1V CLINICAL HISTORY: Shortness of breath. EXAM DATE/TIME: 06/02/2021 4:06 PM COMPARISON: 03/30/2021 FINDINGS: Lines, Tubes, and Devices: None. Cardiomediastinal Silhouette: Within normal limits. Lungs and Pleura: No evidence of focal airspace consolidation, pleural effusion, or pneumothorax. Bones and Soft Tissues: No acute osseous abnormality. IMPRESSION: No evidence of acute cardiopulmonary abnormality or significant interval change. Electronically signed by: Ector Griffin DO (06/02/2021 4:12 PM) [id number]
[2021-06-02 16:18] LABS: CALCIUM 9.4 mg/dL (8.5-10.1); CREATININE 0.5 mg/dL (0.6-1.0); GFR 152.9; POTASSIUM 3.4 mmol/L (3.5-5.1)
[2021-06-02 16:24] LABS: ALBUMIN/GLOBULIN RATIO 1.1 (1.0-1.7); TOTAL BILIRUBIN 0.1 mg/dL (0.2-1.0); TOTAL PROTEIN 7.6 g/dL (6.4-8.2)
[2021-06-02] MEDS ORDERED: BUDE180A IH (17:18)
[2021-06-02] MEDS ORDERED: PRED-220 PO (17:18)
[2021-06-02] MEDS ORDERED: ALBU2.5V8 IH (17:28)
== END 2021-06-02 17:26 | disposition home or self-care (01) ==
LOC: ER 15:25
DX: O99.511 Diseases of the respiratory system complicating pregnancy, first trimester (principal); J45.901 Unspecified asthma with (acute) exacerbation; O99.331 Smoking (tobacco) complicating pregnancy, first trimester; Z3A.13 13 weeks gestation of pregnancy
CPT/HCPCS: 36415; 71045; 80053; 85025; 94640; 96374; 99285; J2930; J7613